=== PATIENT | male | born 1950 | race Caucasian/White ===

== ENCOUNTER 2019-09-02 11:16 | Day surgery (SDC) | payer MEDICARE, OTHER ==
[~2019-09-02] VITALS: Ht 172.7 cm; Wt 92.6 kg
[~2019-09-02 11:16] MED LIST: ABAT250V; ATOR80 PO; CHILDREN'S CETIR5 MG PO; LOSA25 PO; METO25ER PO; SILD25T PO; Zantac150 MG PO
[2019-09-02] MEDS ORDERED: ZYRTEC10 M2 (11:35)
--- NOTE | 2019-09-02 12:27 | NUR ---
09/02/19 12[address] YO NOTIFIED OF CBG OF 56, ORDER GIVEN FOR /2 AMP. D50. 1209 /2 AMP. D50 GIVEN. PT.VERBALIZES USUALLY DOESN'T CHECK HIS BLOOD SUGARS. PT. VERBALIZES JUST FEELS HUNGRY & HIS FINGERTIPS BILAT WERE FEELING TINGLING. PT. WITHOUT DIAPHORESIS. PT. ALSO HAD VERBALIZED THAT HE MIGHT HAVE BEEN NERVOUS WITH THE IV & ALSO THAT COULD HAVE MADE HIS FINGERTIPS FEEL TINGLING.
== END 2019-09-02 14:11 | disposition home or self-care (01) ==
LOC: ORSCSDS 11:16
PROVIDERS: Internal Medicine Gastroenterology
PROC: 0DBK8ZX Excision of Ascending Colon, Via Natural or Artificial Opening Endoscopic, Diagnostic (ICD-10-PCS; principal; 2019-09-02 12:30)
PROC: 0DBL8ZX Excision of Transverse Colon, Via Natural or Artificial Opening Endoscopic, Diagnostic (ICD-10-PCS; principal; 2019-09-02 12:30)
DX: Z12.11 Encounter for screening for malignant neoplasm of colon (principal); Z86.010 Personal history of colon polyps; Z80.0 Family history of malignant neoplasm of digestive organs; D12.2 Benign neoplasm of ascending colon; D12.3 Benign neoplasm of transverse colon; K63.5 Polyp of colon; K57.30 Diverticulosis of large intestine without perforation or abscess without bleeding; K64.8 Other hemorrhoids; I10 Essential (primary) hypertension; R73.03 Prediabetes; Z79.899 Other long term (current) drug therapy
CPT/HCPCS: 82947; 88305; J2704; J7120; J7799

== ENCOUNTER 2023-11-04 11:56 | Day surgery (SDC) | payer MEDICARE, OTHER ==
[~2023-11-04] VITALS: Ht 172.7 cm; Wt 88.9 kg
[~2023-11-04 11:56] MED LIST changes: +ZYRTEC10 M2
[2023-11-04] MEDS ORDERED: FAMO20 (12:18)
[2023-11-04] MEDS ORDERED: LOSARTAN-HCTZ1 EACH PO (12:20)
[2023-11-04 14:49] VITALS: BP 97/62
== END 2023-11-04 13:47 | disposition home or self-care (01) ==
LOC: ORSCSDS 11:56
PROVIDERS: Internal Medicine Gastroenterology
PROC: 0DJD8ZZ Inspection of Lower Intestinal Tract, Via Natural or Artificial Opening Endoscopic (ICD-10-PCS; principal; 2023-11-04 13:15)
DX: Z12.11 Encounter for screening for malignant neoplasm of colon (principal); Z86.010 Personal history of colon polyps; Z80.0 Family history of malignant neoplasm of digestive organs; K57.30 Diverticulosis of large intestine without perforation or abscess without bleeding; K64.4 Residual hemorrhoidal skin tags; I10 Essential (primary) hypertension; E11.9 Type 2 diabetes mellitus without complications; Z79.84 Long term (current) use of oral hypoglycemic drugs; Z79.899 Other long term (current) drug therapy
CPT/HCPCS: 82947; J2704; J7120

== ENCOUNTER → 2024-04-23 | Outpatient (CLI) | payer MEDICARE, OTHER ==
[~2024-04-23] MED LIST changes: +FAMO20; +LOSARTAN-HCTZ1 EACH PO
== END ==
LOC: LAB SHORT 14:28 → LAB 14:28
DX: L82.1 Other seborrheic keratosis (principal)
CPT/HCPCS: 88305